=== PATIENT | female | born 2000 | race Hispanic/Latino ===

== ENCOUNTER 2019-12-13 21:24 | Emergency (ER) | payer SELFPAY ==
[~2019-12-13] VITALS: Ht 152.4 cm; Wt 56.7 kg
--- OUTSIDE RECORDS SUMMARY | 2019-12-13 21:26 | XMS REPORT ---
Author Author [facility] Address Unknown Phone Unavailable Care Team Providers Care Lieutenant General Name Role Phone Unavailable Unavailable Problems This patient has no known problems. Allergies, Adverse Reactions, Alerts This patient has no known allergies or adverse reactions. Medications This patient has no known medications.
[2019-12-13] MEDS ORDERED: BACTRIM DS TAB1 EACH PO (21:50)
[2019-12-13] MEDS ORDERED: TRIMETHOPRIM/SULFAMETHOXAZOLE 160-800 MG TAB ONE (22:03)
[2019-12-13] MEDS ORDERED: TRIMETHOPRIM/SULFAMETHOXAZOLE 160-800 MG TAB PO ONE (23:30)
== END 2019-12-13 22:20 | disposition home or self-care (01) ==
LOC: FSED 21:24
DX: R30.0 Dysuria (principal); R10.30 Lower abdominal pain, unspecified; N30.00 Acute cystitis without hematuria
CPT/HCPCS: 81003; 99283